=== PATIENT | female | born 1945 | race Caucasian/White ===

== ENCOUNTER 2019-09-26 10:34 | Inpatient (IN) | payer OTHER ==
[~2019-09-26] VITALS: Ht 165.1 cm; Wt 104.3 kg
--- NOTE | 2019-09-26 10:53 | NUR ---
PACIENTE ALERTA,ACTIVA Y ORIENTADA.REFIERE CONGESTION Y TOS PRODUCTIVA,DESDE EL MOHAN.
[2019-09-26] MEDS ORDERED: CITALOPRAM20 MG/10 M (10:57)
[2019-09-26] MEDS ORDERED: PROTONIX20 MG (10:57)
[2019-09-26] MEDS ORDERED: CRESTOR5 MG (10:57)
[2019-09-26] MEDS ORDERED: [UNRECOGNIZED DRUG - OTHER] (10:58)
[2019-09-26] MEDS ORDERED: FLONASE SENSIM5.9 ML (10:58)
[2019-09-26] MEDS ORDERED: TURMERIC 500 M1 EACH (10:58)
[2019-09-26] MEDS ORDERED: MUCINEX100 MG (10:59)
[2019-09-26] MEDS ORDERED: CALCIUM CITRAT250 MG (10:59)
[2019-09-26] MEDS ORDERED: BUPROPION HCL200 M1 (11:00)
[2019-09-26] MEDS ORDERED: CLARITIN10 M1 (11:00)
[2019-09-26] MEDS ORDERED: ZEAXANTHIN100 GM (11:00)
--- NOTE | 2019-09-26 12:25 | NUR ---
PTE ES EVALUADA POR DR. ARCHULETA QUIEN ORDENA TRATAMIENTO. RN. KEATING EDUCA A PTE SOBRE ORDENES MEDICAS Y REFIERE COMPRENDER. CANALIZA Y COLECTA MUESTRAS DE LABORATORIO BAJO MEDIDAS ASEPTICAS. ADMINISTRA MEDICAMENTOS JC ORDEN MEDICA Y PTE TOLERA.
--- NOTE | 2019-09-26 15:30 | NUR ---
SE NOTIFCA A TERAPIA RESPIRATORIA ABG Y TERAPIAS AL AMPARO
--- NOTE | 2019-09-26 16:12 | NUR ---
SE VUELVE Y SE NOTIFICA A [facility]APIA AL [facility]
[2019-10-02] MEDS ORDERED: TUSSIN DM LIQU118 ML PO (10:53)
== END 2019-10-02 13:04 | disposition home or self-care (01) | DRG 190 ==
LOC: ER 10:34 → MEDJ 09-27 01:02
PROVIDERS: ADMIT Internal Medicine
PROC: BB24ZZZ Computerized Tomography (CT Scan) of Bilateral Lungs (ICD-10-PCS; principal; 2019-09-27)
PROC: B246ZZZ Ultrasonography of Right and Left Heart (ICD-10-PCS; 2019-09-27)
PROC: 3E0F7GC Introduction of Other Therapeutic Substance into Respiratory Tract, Via Natural or Artificial Opening (ICD-10-PCS; 2019-09-27)
PROC: 4A033R1 Measurement of Arterial Saturation, Peripheral, Percutaneous Approach (ICD-10-PCS; 2019-09-27)
DX: J44.1 Chronic obstructive pulmonary disease with (acute) exacerbation (principal); I33.9 Acute and subacute endocarditis, unspecified; N17.8 Other acute kidney failure; J45.41 Moderate persistent asthma with (acute) exacerbation; J21.8 Acute bronchiolitis due to other specified organisms; R09.02 Hypoxemia; K29.00 Acute gastritis without bleeding; M62.89 Other specified disorders of muscle; I08.2 Rheumatic disorders of both aortic and tricuspid valves; J01.80 Other acute sinusitis; B96.3 Hemophilus influenzae [H. influenzae] as the cause of diseases classified elsewhere